=== PATIENT | female | born 1980 | race African-American/Black ===

== ENCOUNTER 2017-10-13 14:25 | Emergency (ER) | payer MEDICAID ==
[2017-10-13 14:32] VITALS: BP 113/78
--- NOTE | 2017-10-13 14:48 | ED Physician Documentation ---
PD HPI HEENT FB - Chief complaint Chief Complaint: Heent - History obtained from History obtained from: Patient - History of Present Illness Timing - onset: Other (About 4 days bilateral ear irritation like something is in there. But nothing was put in there although did try peroxide without help. Mildly muffled hearing. No URI sx.) Review of Systems Constitutional: denies: Fever, Chills Eyes: reports: Reviewed and negative Ears: reports: Loss of hearing, Ear pain. denies: Drainage/discharge, Tinnitus/ ringing Nose: denies: Rhinorrhea / runny nose Throat: denies: Sore throat PD PAST MEDICAL HISTORY - Past Medical History Past Medical History: Yes Endocrine/Autoimmune: Type 2 diabetes - Present Medications Home Medications: Ambulatory Orders Medication Instructions Recorded Confirmed Neomycin/Polymyx/Hc Otic Drops 4 drops OT TID #1 bottle 10/13/17 [Cortisporin Ear Susp] PD ED PE NORMAL - Vitals Vital signs reviewed: Yes - General General: Alert and oriented X 3, No acute distress - HEENT HEENT: Other (She has bilateral mild external otitis worse on the right than the left, TMs are normal and there is no significant swelling. There is no foreign body or pathologic amounts of cerumen.) - Neck Neck: Supple, no meningeal sign, No bony TTP - Neuro Neuro: Alert and oriented X 3, Normal speech Results - Vitals Vitals: Vital Signs - 24 hr 10/13/17 14:29 Temperature 36.8 C Heart Rate 87 Respiratory 16 Rate Blood Pressure 113/78 O2 Saturation 99 Oxygen O2 Source Room air PD MEDICAL DECISION MAKING - Sepsis Event Vital Signs: Vital Signs - 24 hr 10/13/17 14:29 Temperature 36.8 C Heart Rate 87 Respiratory 16 Rate Blood Pressure 113/78 O2 Saturation 99 Oxygen O2 Source Room air Departure - Departure Disposition: Home, Self Care Clinical Impression: External otitis Qualifiers: Otitis externa type: diffuse Chronicity: acute Laterality: bilateral Qualified Code(s): H60.313 - Diffuse otitis externa, bilateral Condition: Good Record reviewed to determine appropriate education?: Yes Instructions: ED Otitis Externa Prescriptions: Neomycin/Polymyx/Hc Otic Drops [Cortisporin Ear Susp] 4 drops OT TID #1 bottle Comments: Call your doctor to arrange a follow-up appointment, make the next available appointment. In the interim, return anytime if worse or if new symptoms develop.
== END 2017-10-13 14:57 | disposition home or self-care (01) ==
LOC: ED 14:25
DX: H60.313 Diffuse otitis externa, bilateral (principal); E11.9 Type 2 diabetes mellitus without complications
CPT/HCPCS: 99283

== ENCOUNTER 2017-10-22 14:38 | Emergency (ER) | payer MEDICAID ==
[2017-10-22 14:53] VITALS: BP 117/73
[2017-10-22] MEDS ORDERED: HYDROcod/ACETAM 5/325 MG TABLET PO STA (15:52)
--- NOTE | 2017-10-22 15:54 | ED Physician Documentation ---
PD HPI HEENT - Stated complaint Stated Complaint: R EAR PX - Chief complaint Chief Complaint: Heent - History obtained from History obtained from: Patient - History of Present Illness Timing - onset: Other (She was seen about a week ago for bilateral ear pain and diagnosed with external otitis and prescribed Cortisporin which has helped but she is out of the drops and has persistent symptoms and now has a toothache on the right mandible. No fevers or facial swelling.) Review of Systems Constitutional: denies: Fever, Chills Nose: denies: Rhinorrhea / runny nose, Congestion Cardiac: denies: Chest pain / pressure, Palpitations Respiratory: denies: Dyspnea, Cough PD PAST MEDICAL HISTORY - Past Medical History Endocrine/Autoimmune: Type 2 diabetes - Present Medications Home Medications: Ambulatory Orders Medication Instructions Recorded Confirmed Amoxicillin 500 mg PO TID #30 capsule 10/22/17 Ciproflox/Dexameth Otic Drops 4 drops OT BID #1 bottle 10/22/17 [Ciprodex] Hydrocodone/Acetaminophen 1 - 2 each PO Q6H PRN #14 tablet 10/22/17 [Hydrocodon-Acetaminophen 5-325] metFORMIN [Glucophage] 1,000 mg BID 10/22/17 10/22/17 - Allergies Allergies/Adverse Reactions: Allergies Allergy/AdvReac Type Severity Reaction Status Date / Time No Known Drug Allergies Allergy Verified 10/13/17 14:56 - Social History Does the pt smoke?: No Smoking Status: Never smoker PD ED PE NORMAL - Vitals Vital signs reviewed: Yes - General General: Alert and oriented X 3, No acute distress - HEENT HEENT: Other (Left external otitis has resolved but she does have residual right external otitis. She has many cavities with a lot of fillings, the tender tooth in question is the last existing right mandibular molar which is tender but there is no gingival swelling, facial swelling, trismus, or sublingual edema.) - Neck Neck: Supple, no meningeal sign, No bony TTP - Neuro Neuro: Alert and oriented X 3, Normal speech Results - Vitals Vitals: Vital Signs - 24 hr 10/22/17 14:49 Temperature 36.2 C L Heart Rate 80 Respiratory 16 Rate Blood Pressure 117/73 O2 Saturation 99 Oxygen O2 Source Room air PD MEDICAL DECISION MAKING - Sepsis Event Vital Signs: Vital Signs - 24 hr 10/22/17 14:49 Temperature 36.2 C L Heart Rate 80 Respiratory 16 Rate Blood Pressure 117/73 O2 Saturation 99 Oxygen O2 Source Room air Departure - Departure Disposition: 01 Home, Self Care Clinical Impression: Dental abscess External otitis Qualifiers: Otitis externa type: swimmer's ear Chronicity: acute Laterality: right Qualified Code(s): H60.331 - Swimmer's ear, right ear Condition: Good Record reviewed to determine appropriate education?: Yes Instructions: ED Abscess Dental, ED Otitis Externa Prescriptions: Amoxicillin 500 mg PO TID #30 capsule Ciproflox/Dexameth Otic Drops [Ciprodex] 4 drops OT BID #1 bottle Hydrocodone/Acetaminophen [Hydrocodon-Acetaminophen 5-325] 1 - 2 each PO Q6H PRN #14 tablet PRN Reason: pain Comments: Call your doctor to arrange a follow-up appointment, make the next available appointment. In the interim, return anytime if worse or if new symptoms develop. It is very important that you follow-up with a dentist. When it comes to dental problems like yours, the emergency department can only offer a short- term solution to your long-term problem. A couple of low cost options for dental care include: [facility] in [place], calls [phone] for an appointment Or [facility] in [place], call [phone] for an appointment.
== END 2017-10-22 16:25 | disposition home or self-care (01) ==
LOC: ED 14:38
DX: K04.7 Periapical abscess without sinus (principal); H60.331 Swimmer's ear, right ear; E11.9 Type 2 diabetes mellitus without complications; Z79.84 Long term (current) use of oral hypoglycemic drugs
CPT/HCPCS: 99281; 99283; A9270

== ENCOUNTER 2017-11-15 07:56 | Emergency (ER) | payer MEDICAID ==
[2017-11-15 08:08] VITALS: BP 117/87
--- NOTE | 2017-11-15 08:17 | ED Physician Documentation ---
PD HPI HEENT - Stated complaint Stated Complaint: R EAR PX/TOOTH PX - Chief complaint Chief Complaint: Heent - History obtained from History obtained from: Patient, Family - History of Present Illness Timing - onset: How many weeks ago (2) - Additional information Additional information: The patient is a 36-year-old female who presents with right earache and right jaw pain and has been increasing over the past week or 2. One month ago she was diagnosed with abscess tooth and otitis externa, and was treated with amoxicillin and Cortisporin otic suspension. Her symptoms temporarily improved, but have increased over the past 2 weeks. She also reports mild headache. She denies fever, sore throat, or difficulty swallowing. Review of Systems Constitutional: denies: Fever Eyes: denies: Irritation Ears: reports: Ear pain (right ear) Nose: denies: Congestion Throat: reports: Dental pain / toothache. denies: Sore throat Cardiac: denies: Chest pain / pressure Respiratory: denies: Cough GI: denies: Nausea, Vomiting Skin: denies: Rash Musculoskeletal: denies: Neck pain Neurologic: reports: Headache (mild) PD PAST MEDICAL HISTORY - Past Medical History Past Medical History: Yes Endocrine/Autoimmune: Type 2 diabetes - Past Surgical History Past Surgical History: No - Present Medications Home Medications: Ambulatory Orders Medication Instructions Recorded Confirmed Amoxicillin 500 mg PO TID #30 capsule 10/22/17 Ciproflox/Dexameth Otic Drops 4 drops OT BID #1 bottle 10/22/17 [Ciprodex] Hydrocodone/Acetaminophen 1 - 2 each PO Q6H PRN #14 tablet 10/22/17 [Hydrocodon-Acetaminophen 5-325] metFORMIN [Glucophage] 1,000 mg BID 10/22/17 10/22/17 HYDROcod/ACETAM 5/325 [Cheraw 5/325] 1 - 2 ea PO Q6H PRN #14 tablet 11/15/17 cephALEXin [Cephalexin] 500 mg PO TID 7 Days #21 tablet 11/15/17 - Allergies Allergies/Adverse Reactions: Allergies Allergy/AdvReac Type Severity Reaction Status Date / Time No Known Drug Allergies Allergy Verified 10/13/17 14:56 - Social History Does the pt smoke?: No Smoking Status: Never smoker Does the pt drink ETOH?: No Does the pt have substance abuse?: No - POLST Patient has POLST: No PD ED PE NORMAL - Vitals Vital signs reviewed: Yes (normal) - General General: Alert and oriented X 3, Well developed/nourished - HEENT HEENT: Atraumatic, Pharynx benign, Other (Right tympanic membrane is erythematous and bulging, left tympanic membranes is clear. Molars are decayed, with tenderness to palpation of a right lower molar.) - Neck Neck: Supple, no meningeal sign - Cardiac Cardiac: RRR, No murmur - Respiratory Respiratory: No respiratory distress, Clear bilaterally - Abdomen Abdomen: Soft, Non tender - Back Back: No CVA TTP - Derm Derm: No rash - Neuro Neuro: Alert and oriented X 3, Normal speech Results - Vitals Vitals: Vital Signs - 24 hr 11/15/17 08:04 Temperature 37.1 C Heart Rate 87 Respiratory 16 Rate Blood Pressure 117/87 H O2 Saturation 99 Oxygen O2 Source Room air PD MEDICAL DECISION MAKING - ED course Complexity details: reviewed old records, considered differential, d/w patient, d/w family ED course: The patient's presentation is for right otitis media and dental abscess. Her clinical presentation does not suggest meningitis, peritonsillar abscess, or pharyngitis. She is being discharged with prescriptions for cephalexin and for Vicodin, 14 tablets. I discussed with her and her family the diagnosis, the importance of urgent dental follow-up, as well as potentially worrisome signs or symptoms that should prompt reevaluation in the emergency department. - Sepsis Event Vital Signs: Vital Signs - 24 hr 11/15/17 08:04 Temperature 37.1 C Heart Rate 87 Respiratory 16 Rate Blood Pressure 117/87 H O2 Saturation 99 Oxygen O2 Source Room air Departure - Departure Disposition: 01 Home, Self Care Clinical Impression: Dental abscess Right otitis media Qualifiers: Otitis media type: unspecified Qualified Code(s): H66.91 - Otitis media, unspecified, right ear Condition: Stable Instructions: ED Abscess Dental, ED Otitis Media Serous Adult Prescriptions: cephALEXin [Cephalexin] 500 mg PO TID 7 Days #21 tablet HYDROcod/ACETAM 5/325 [Cheraw 5/325] 1 - 2 ea PO Q6H PRN #14 tablet PRN Reason: Pain Comments: Take cephalexin 3 times daily as prescribed. Continue using ibuprofen for its anti-inflammatory effect. You can also use Vicodin as prescribed if needed for pain. Follow-up with your dentist as scheduled. Return to the emergency department if you develop increasing pain or facial swelling, or otherwise worsening symptoms. Discharge Date/Time: 11/15/17 08:21
== END 2017-11-15 08:21 | disposition home or self-care (01) ==
LOC: ED 07:56
DX: K04.7 Periapical abscess without sinus (principal); H66.91 Otitis media, unspecified, right ear; E11.9 Type 2 diabetes mellitus without complications; Z79.84 Long term (current) use of oral hypoglycemic drugs
CPT/HCPCS: 99283